=== PATIENT | male | born 1945 | race Two or more races ===

== ENCOUNTER 2023-12-12 12:43 | Emergency (ER) | payer OTHER ==
[~2023-12-12] VITALS: Ht 167.6 cm; Wt 57.2 kg
[2023-12-12 17:17] LABS: HEMATOCRIT 43.3 % (39.0-48.0); MEAN CORPUSCULAR HEMOGLOBIN 32.2 pg (27.00-32.0); MEAN CORPUSCULAR HGB CONC 34.7 g/dl (32.0-36.0); RED BLOOD COUNT 4.66 M/uL (4.00-6.00); RED CELL DISTRIBUTION WIDTH 13.1 % (11.5-14.5)
[2023-12-12 17:19] LABS: PLATELET COUNT 120 K/uL (150-450)
[2023-12-12 17:23] LABS: URINE APPEARANCE Clear; URINE BILIRRUBIN Negative (NEGATIVE); URINE BLOOD Trace; URINE COLOR Yellow; URINE GLUCOSE Negative (NEGATIVE); URINE LEUKOCYTE Negative; URINE NITRATE Negative; URINE PROTEIN 30 (NEGATIVE); URINE UROBILINOGEN 0.2 E.U./dl
[2023-12-12 17:35] LABS: URINE BACTERIA 3.7 uL (0.0-1933); URINE RBC 0.8 uL (0.0-20.8); URINE WBC 0.6 uL (0.0-23.2)
[2023-12-12 17:40] LABS: ALBUMIN 3.6 gm/dL (3.4-5.0); BILIRUBIN TOTAL 0.47 mg/dL (0.3-1.2); CALCIUM 8.8 mg/dL (8.5-10.1); CREATININE SERUM 1.14 mg/dL (0.70-1.30); GFR 61.96; GLOBULINA 4.4 G/DL (2.4-3.5); POTASSIUM 4.22 mEq/L (3.5-5.1)
[2023-12-12] MEDS ORDERED: ZYRTEC10 MG PO (19:41)
[2023-12-12] MEDS ORDERED: OSEL75CA PO (19:41)
== END 2023-12-12 19:58 ==
LOC: ER 12:44
PROVIDERS: Nurse Practitioner Family
DX: J10.1 Influenza due to other identified influenza virus with other respiratory manifestations (principal); S05.11XA Contusion of eyeball and orbital tissues, right eye, initial encounter; W18.39XA Other fall on same level, initial encounter; Y93.89 Activity, other specified; Y92.89 Other specified places as the place of occurrence of the external cause; J32.9 Chronic sinusitis, unspecified; Z20.822 Contact with and (suspected) exposure to COVID-19